=== PATIENT | male | born 1980 | race Caucasian/White ===

== ENCOUNTER 2016-10-24 02:56 | Emergency (ER) | payer SELFPAY ==
[2016-10-24] MEDS ORDERED: IBUPROFEN 800 MG TABLET ONE (03:45)
== END 2016-10-24 04:04 | disposition home or self-care (01) ==
LOC: ED 02:56
DX: H57.11 Ocular pain, right eye (principal); Z77.098 Contact with and (suspected) exposure to other hazardous, chiefly nonmedicinal, chemicals
CPT/HCPCS: 99282 ×2; A9270

== ENCOUNTER 2016-12-24 15:25 | Emergency (ER) | payer SELFPAY | END 2016-12-24 17:57 | disposition home or self-care (01) | LOC: ED 15:25 | DX: G47.00 Insomnia, unspecified (principal); Z59.0 Homelessness; F17.210 Nicotine dependence, cigarettes, uncomplicated; Z88.2 Allergy status to sulfonamides ==

== ENCOUNTER 2016-12-26 19:41 | Emergency (ER) | payer SELFPAY ==
[2016-12-26] MEDS ORDERED: AMOXICILLIN TRIHYDRATE 250 MG CAPSULE ONE (21:00)
[2016-12-26] MEDS ORDERED: IBUPROFEN 800 MG TABLET ONE (21:00)
== END 2016-12-26 21:39 | disposition home or self-care (01) ==
LOC: ED 19:41
DX: K05.10 Chronic gingivitis, plaque induced (principal); Z59.0 Homelessness; F17.210 Nicotine dependence, cigarettes, uncomplicated; Z88.2 Allergy status to sulfonamides
CPT/HCPCS: 99283 ×2; A9270 ×2

== ENCOUNTER 2016-12-28 07:09 | Emergency (ER) | payer OTHER ==
--- NOTE | 2016-12-28 08:35 | RAD ---
HISTORY: Injury to base of thumb. Initial encounter. COMPARISON: None TECHNIQUE: Three views of the left hand FINDINGS: Bones: No fracture or dislocation. Joints: Unremarkable. Soft tissue: Normal. IMPRESSION: No fracture or dislocation.
== END 2016-12-28 08:24 | disposition home or self-care (01) ==
LOC: ED 07:09
DX: S61.432A Puncture wound without foreign body of left hand, initial encounter (principal); F17.210 Nicotine dependence, cigarettes, uncomplicated; W23.0XXA Caught, crushed, jammed, or pinched between moving objects, initial encounter; Y93.9 Activity, unspecified; Y92.69 Other specified industrial and construction area as the place of occurrence of the external cause; Y99.0 Civilian activity done for income or pay

== ENCOUNTER 2016-12-29 00:18 | Observation (INO) | payer OTHER ==
[2016-12-29 02:35] LABS: ABSOLUTE NEUTROPHIL COUNT 2.9 K/mm3 (1.8-7.7); BASO # 0.1 K/mm3 (0.0-0.2); BASO % 1.3 % (0.2-1.0); EOS # 0.2 (0.0-0.5); EOS % 3.5 % (0.9-2.9); HEMATOCRIT 43.3 % (32.0-52.0); HEMOGLOBIN 14.8 gm/l (14.0-18.0); IMM NEUT% 0.2 % (0-1); LYMPH # 2.4 (1.0-4.8); MEAN CELL VOLUME 101.4 fl (80.0-94.0); MEAN CORPUSCULAR HEMOGLOBIN 34.7 pg (27.0-31.0); MEAN CORPUSCULAR HGB CONC 34.2 g/dl (33.0-37.0); MEAN PLATELET VOLUME 10.3 fl (7.4-10.4); MONO # 0.4 (0.0-0.8); MONO % 6.8 % (4-12); NEUT % 48.2 % (43-75); PLATELET COUNT 169 K/mm3 (130-400); RED CELL DISTRIBUTION WIDTH 13.1 % (11.5-14.5)
[2016-12-29 02:54] LABS: ALB/GLOB RATIO 1.5 (>1.0); CALCIUM 9.5 mg/dL (8.6-10.3)
[2016-12-29 03:55] LABS: URINE BILIRUBIN NEGATIVE (NEGATIVE); URINE BLOOD NEGATIVE (NEGATIVE); URINE GLUCOSE (UA) NEGATIVE (NEGATIVE); URINE LEUKOCYTE ESTERASE NEGATIVE (NEGATIVE); URINE NITRITE NEGATIVE (NEGATIVE); URINE PROTEIN NEGATIVE (NEGATIVE); URINE UROBILINOGEN NORMAL (0-1 mg/dl)
[2016-12-29 03:57] LABS: URINE APPEARANCE HAZY; URINE COLOR YELLOW
[2016-12-29 05:38] VITALS: BMI 20.2
[2016-12-29] MEDS ORDERED: BISACODYL 10 MG SUP PR PRN (06:36)
[2016-12-29] MEDS ORDERED: MAGNESIUM HYDROXIDE 30 ML UDCUP PO PRN (06:36)
[2016-12-29] MEDS ORDERED: BLISTEX LIPSTICK 1 EACH TP PRN (06:36)
[2016-12-29] MEDS ORDERED: ACETAMINOPHEN 325 MG TABLET PO PRN (06:36)
[2016-12-29] MEDS ORDERED: MENTHOL/CETYLPYRD 1 EACH LOZENGE PO PRN (06:36)
[2016-12-29] MEDS ORDERED: BISACODYL 5 MG TABLET.EC PO PRN (06:36)
[2016-12-29] MEDS ORDERED: SODIUM CHLORIDE 0.9% 100 ML IV PRN (06:36)
[2016-12-29] MEDS ORDERED: SODIUM CHLORIDE 0.9% 1,000 ML IV SCH ×2 (06:45)
--- NOTE | 2016-12-29 07:56 | RAD ---
12/29/2016 7:51 AM CHEST - 2 VIEWS History: Left hand numbness Comparison: None Findings: Two views of the chest are obtained. The lungs demonstrate patchy airspace disease projecting over the spine on lateral view. This may correspond to the left posterior lower lobe distribution. The cardiomediastinal silhouette is unremarkable.. The osseous structures are intact.. IMPRESSION: Possible posterior segment left lower lobe pneumonia best seen on lateral view. Follow-up as clinically warranted.
[2016-12-29] MEDS ORDERED: PUMP TUBING ONE (08:31)
--- NOTE | 2016-12-29 08:42 | CT ---
HEAD W/O CON: 12/29/2016 7:51 AM CLINICAL HISTORY: Syncopal episode last night. COMPARISON: None. TECHNIQUE: Contiguous axial 5 mm images from skull base to the vertex were obtained without IV contrast. Sagittal and coronal reformations with bone algorithm images were also obtained at this time. CT DI:: 51.7 DLP: 913.1 FINDINGS: Infarct: None Extra axial spaces: Normal in size and morphology for the patient's age. Hemorrhage: None. Ventricular system: Normal in size and morphology for the patient's age. Basal cisterns: Normal. Cerebral parenchyma: Normal. Midline shift: None. Cerebellum: Normal. Brainstem: Normal. OTHER: Calvarium: Normal. Vascular system: Normal. Visualized Paranasal sinuses and Mastoid air cells: There may be some scattered fluid and minimal mucosal thickening within some of the ethmoid air cells. The remainder of the paranasal sinuses and mastoid air cells are well aerated as visualized. Visualized Orbits and regional soft tissues: Normal. IMPRESSION: No acute intracranial process. Minimal sinus disease. Report was uploaded to the electronic medical record at approximately 0839 hours on 12/29/2016.
[2016-12-29] MEDS ORDERED: AMOXICILLIN TRIHYDRATE 500 MG CAPSULE PO SCH (09:00)
[2016-12-29] MEDS ORDERED: DOCUSATE SODIUM 100 MG CAPSULE PO SCH (09:00)
[2016-12-29] MEDS ORDERED: AZITHROMYCIN 500 MG in SODIUM CHLORIDE 0.9% 250 ML IV SCH (09:15)
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
[2016-12-29] MEDS ORDERED: CEFTRIAXONE 1 GRAM DUPLEX 1 G in Premix (D5W) 50 ml 1 EACH IV SCH (10:45)
[2016-12-29 12:44] VITALS: BP 93/61
== END 2016-12-29 15:50 | disposition home or self-care (01) ==
LOC: ED 00:18 → MS 04:32
PROVIDERS: ADMIT Family Medicine; ATTEND Family Medicine
DX: R55 Syncope and collapse (principal); Z59.0 Homelessness
CPT/HCPCS: 83880; 85379; 85025; 80053; 83735; 81003; 84443; 84484 ×2; 71020; 70450; 99284; 82962; 93306; 93226; 93225; 93005; 99285; A9270; J7030 ×2

== ENCOUNTER 2017-01-12 14:02 | Emergency (ER) | payer OTHER ==
[2017-01-12] MEDS ORDERED: IOPAMIDOL 300 (61%) 100 ML VIAL IV ONE (14:03)
[2017-01-12] MEDS ORDERED: SODIUM CHLORIDE 0.9% 1,000 ML ONE (15:50)
[2017-01-12 15:54] LABS: ABSOLUTE NEUTROPHIL COUNT 4.5 K/mm3 (1.8-7.7); BASO # 0.1 K/mm3 (0.0-0.2); BASO % 0.9 % (0.2-1.0); EOS % 0.5 % (0.9-2.9); HEMATOCRIT 45.9 % (32.0-52.0); HEMOGLOBIN 15.8 gm/l (14.0-18.0); IMM NEUT% 0.3 % (0-1); LYMPH # 1.6 (1.0-4.8); LYMPH % 23.3 % (15-45); MEAN CELL VOLUME 98.3 fl (80.0-94.0); MEAN CORPUSCULAR HEMOGLOBIN 33.8 pg (27.0-31.0); MEAN CORPUSCULAR HGB CONC 34.4 g/dl (33.0-37.0); MEAN PLATELET VOLUME 10.7 fl (7.4-10.4); MONO # 0.5 (0.0-0.8); PLATELET COUNT 180 K/mm3 (130-400); RED CELL DISTRIBUTION WIDTH 12.6 % (11.5-14.5)
[2017-01-12 16:06] LABS: ALB/GLOB RATIO 1.7 (>1.0); ALBUMIN 4.6 gm/dL (3.5-5.7); CALCIUM 9.8 mg/dL (8.6-10.3)
--- NOTE | 2017-01-12 16:13 | CT ---
ABD/PELVIS W/ CON COMPARISON: None. HISTORY: 36-year-old male with 2 days left lower quadrant and left-sided abdominal pain, watery diarrhea, and decreased appetite, being treated with some antibiotics for several days. Technique: No oral contrast. Intravenous injection 100 mL Isovue 300. Using a [employer] [address], images were obtained from the diaphragm to the floor the pelvis. An automated dose reduction technique was used to minimize patient radiation dose. Dose information: CTDIvol (mGy): 6.10 DLP(mGycm): 300.30 FINDINGS: Lung bases: Normal. Inferior mediastinum and heart: Normal. Liver: Normal. Gallbladder:Normal. Bile ducts: Normal. Pancreas: Normal. Spleen: Normal. Adrenal glands: Normal. Kidneys: Normal. Ureters: Normal Urinary bladder: Normal. Prostate gland and seminal vesicles: Normal. Blood vessels: Normal Lymph nodes: Normal Stomach: Normal Duodenum: Normal Small intestine: Normal Appendix: Normal Colon: Normal Abdominal wall and supporting musculature: Normal Bones: Normal IMPRESSION: Normal study. No diverticulitis. No colitis. No evidence of enteritis. There is no fluid within the colon. No bowel distention. No free fluid. Normal kidneys, ureters, and bladder. Normal appendix. The report was sent to the emergency department electronic medical record system 01/12/2017 at 16:14
[2017-01-12 16:20] LABS: SPECIFIC GRAVITY 1.015 (1.001-1.030); URINE APPEARANCE CLEAR; URINE BILIRUBIN NEGATIVE (NEGATIVE); URINE BLOOD NEGATIVE (NEGATIVE); URINE COLOR YELLOW; URINE GLUCOSE (UA) NEGATIVE (NEGATIVE); URINE LEUKOCYTE ESTERASE NEGATIVE (NEGATIVE); URINE NITRITE NEGATIVE (NEGATIVE); URINE PROTEIN NEGATIVE (NEGATIVE); URINE UROBILINOGEN NORMAL (0-1 mg/dl)
== END 2017-01-12 17:12 | disposition home or self-care (01) ==
LOC: ED 14:02
DX: R10.32 Left lower quadrant pain (principal); R19.7 Diarrhea, unspecified; F17.210 Nicotine dependence, cigarettes, uncomplicated
CPT/HCPCS: 85025; 80053; 81003; 74177; 99284 ×2; 96360; J7030; Q9967